=== PATIENT | male | born 1990 | race Caucasian/White ===

== ENCOUNTER 2021-06-28 10:56 | Emergency (ER) | payer OTHER ==
[~2021-06-28] VITALS: Ht 177.8 cm; Wt 241.8 kg
[~2021-06-28 10:56] MED LIST: CEPHALEXIN 500500 M3 PO; FLEXERIL PO; HYDROCODON-ACE1 EAC8 PO; IBUPROFEN 800800 M1 PO; IBUPROFEN 800800 MG PO
[2021-06-28] MEDS ORDERED: METFORMIN HCL500 M3 PO (11:10)
[2021-06-28] MEDS ORDERED: LISINOPRIL10 MG PO (11:10)
[2021-06-28] MEDS ORDERED: APAP W/CODEINE1 TA2 PO (11:51)
[2021-06-28] MEDS ORDERED: IBUPROFEN 600600 M1 PO (12:08)
[2021-06-28 12:44] VITALS: BP 121/74
== END 2021-06-28 12:44 | disposition home or self-care (01) ==
LOC: M.ERS 10:56
DX: M25.572 Pain in left ankle and joints of left foot (principal); J45.909 Unspecified asthma, uncomplicated; I10 Essential (primary) hypertension; E78.00 Pure hypercholesterolemia, unspecified; E11.9 Type 2 diabetes mellitus without complications; Z79.899 Other long term (current) drug therapy; Z90.89 Acquired absence of other organs